=== PATIENT | male | born 1980 | race Caucasian/White ===

== ENCOUNTER 2023-11-09 16:12 | Emergency (ER) | payer BC ==
[~2023-11-09] VITALS: Ht 188 cm; Wt 104.3 kg
[2023-11-09 16:29] VITALS: BP_SYST 132; PULSE 77; RESP 16; TEMP 97.9; O2SAT 97
[2023-11-09] MEDS ORDERED: AUG875 PO (19:38)
[2023-11-09] MEDS: AMOXICILLIN/POTASSIUM CLAV 875 MG TABLET PO ONE (19:42)
[2023-11-09] MEDS: KETOROLAC TROMETHAMINE 30 MG VIAL IM ONE (19:43)
[2023-11-09 19:54] VITALS: BP_SYST 132; PULSE 77; RESP 16; TEMP 97.9; O2SAT 97
== END 2023-11-09 20:04 | disposition home or self-care (01) ==
LOC: SED 16:12
DX: R22.0 Localized swelling, mass and lump, head (principal); K04.7 Periapical abscess without sinus; Z79.2 Long term (current) use of antibiotics
CPT/HCPCS: 99283; 96372; J1885